=== PATIENT | female | born 1945 | race Caucasian/White ===

== ENCOUNTER 2017-01-28 08:54 | Day surgery (SDC) | payer OTHER ==
--- NOTE | 2017-01-22 15:32 | HISTORY AND PHYSICAL E ---
History and Physical NAME: BERNARDINO ROWE : 1945 AGE: 71Y ADMITTED: 01/28/2017 ROOM: CHIEF COMPLAINT: Colon screening. HISTORY: Know to me 2009 colonoscopy showing diverticulosis, no evidence of malignancy. At this time, patient for colon screening. REVIEW OF SYSTEMS: CARDIAC: Negative. PULMONARY: Negative. MEDICATIONS: 1. Lipitor. 2. Lisinopril. 3. Losartan. 4. Omeprazole. 5. Cymbalta. 6. Lactulose. 7. Metamucil. 8. MiraLax. PAST MEDICAL HISTORY: 1. Constipation. 2. Arthritis. 3. Hypertension. 4. Diverticulosis. PHYSICAL EXAMINATION: GENERAL: Alert and oriented, in no acute distress. VITAL SIGNS: Blood pressure 130/70, pulse 80, respirations 20, temp 98. HEAD, EYES, EARS, NOSE AND THROAT: Normal. ABDOMEN: Soft. NEUROLOGICAL: Exam negative. CONCLUSIONS: Diverticulosis. PLAN: To undergo colon screening. The patient did have CAT scan, mild diverticulosis sigmoid colon. She did have left anterior pelvic hernia interposed between the lateral margin of the left rectus abdominis muscle and the left iliac crest. PAST SURGICAL HISTORY: 1. Appendectomy. 2. Hysterectomy. 3. Right side predominant bladder surgery. 4. Mild rotatory dextrocurvature of the upper lumbar spine. Diffuse osteopenia. CONCLUSIONS: Colon screening. The patient presents at this time for colon screening. Admit 01/28/2017. DICTATING PHYSICIAN: KRIS GILBERT M.D. [id number] Y#: [id number] ID: [id number] JOB#: [id number] ACCT: [id number] cc:KRIS GILBERT M.D. >
[~2017-01-28 08:54] MED LIST: EPINEPHRINE INJ 1 MG/10 ML DISP.SYRIN ONE; FENTANYL CITRATE INJ/PF 100 MCG/2 ML AMPUL ONE; FLUMAZENIL INJ 0.5 MG/5 ML VIAL IV ONE; GLUCAGON,HUMAN RECOMB 1 MG INJ ONE; GLYCOPYRROLATE INJ 0.4 MG/2 ML VIAL ONE; LIDOCAINE 2% JELLY 30 ML TUBE ONE; NALOXONE HCL INJ/PF 0.4 MG/1 ML SDV ONE; ONDANSETRON HCL INJ/PF 4 MG/2 ML SDV ONE
[2017-01-28] MEDS: MIDAZOLAM 2 MG/2 ML INJ ONE ×3 (09:21→09:30)
--- NOTE | 2017-01-28 10:12 | DISCHARGE SUMMARY E ---
Discharge Summary NAME: BERNARDINO ROWE : 1945 AGE: 71Y ADMITTED: 01/28/2017 DISCHARGED: HISTORY: The patient is a 71 years old female who underwent colon screening today that shows mild external hemorrhoids, sigmoid descending colon, and diverticulosis. DISCHARGE PLAN: Soft diet. Resume all medication except hold aspirin 2 days. Awaiting biopsy results. Consideration for colonoscopy every 10 years. Patient does have a history of hysterectomy, bilateral knees, irregular heart beat, hypertension. DICTATING PHYSICIAN: KRIS GILBERT M.D. [id number] PHY#: [id number] ID: [id number] JOB#: [id number] ACCT: [id number] cc:KRIS GILBERT M.D. >
[2017-01-28 10:50] VITALS: BP 135/65
--- NOTE | 2017-01-29 10:28 | OPERATIVE REPORT E ---
Operative Report NAME: BERNARDINO ROWE : 1945 AGE: 71Y DATE OF SURGERY: 01/28/2017 ROOM: PREOPERATIVE DIAGNOSIS: Colon screening. POSTOPERATIVE DIAGNOSES: 1. Sigmoid and descending colon diverticulosis, mild. 2. External hemorrhoids, mild. PROCEDURE: Colonoscopy. SURGEON: KRIS GILBERT M.D. ANESTHESIA: 1. Versed 2 mg. 2. Fentanyl 100 mcg. TISSUE REMOVED OR ALTERED: None. DESCRIPTION OF PROCEDURE: RECTAL EXAM: External hemorrhoids. SIGMOID AND DESCENDING COLON: Diverticulosis. TRANSVERSE COLON: Normal. ASCENDING COLON: Normal. CECUM: Normal. Scope withdrawn from cecum, ascending, transverse, descending, sigmoid, all the way to the rectum. CONCLUSION: 1. External hemorrhoids. 2. Diverticulosis of sigmoid and descending colon. PLAN: 1. Soft diet for 2 days. 2. Consider followup colonoscopy in 10 years. DICTATING PHYSICIAN: KRIS GILBERT M.D. [id number] PHY#: [id number] ID: [id number] JOB#: [id number] ACCT: [id number] cc:Alyssa PYLE M.D. >
== END 2017-01-28 10:55 | disposition home or self-care (01) ==
LOC: END 08:54
PROVIDERS: ATTEND Specialist
PROC: 0DJD8ZZ Inspection of Lower Intestinal Tract, Via Natural or Artificial Opening Endoscopic (ICD-10-PCS; principal; 2017-01-28 09:00)
DX: Z12.11 Encounter for screening for malignant neoplasm of colon (principal); K64.4 Residual hemorrhoidal skin tags; K57.30 Diverticulosis of large intestine without perforation or abscess without bleeding; M19.90 Unspecified osteoarthritis, unspecified site; I10 Essential (primary) hypertension; Z79.899 Other long term (current) drug therapy
CPT/HCPCS: G0121; J2250; J3010; J1610; 45378; J0171; J2310; J2405; J3490

== ENCOUNTER → 2020-04-21 | Outpatient (CLI) | payer OTHER ==
--- NOTE | 2020-04-21 16:06 | RADIOLOGY REPORT (SQ) ---
EXAM DESCRIPTION: BARIUM SWALLOW ESOPHAGUS IMAGES COMPLETED DATE/TIME: 04/21/2020 10:35 am REASON FOR STUDY: DYSPHAGIA (R13.10) R13.10 DYSPHAGIA, UNSPECIFIED COMPARISON: None. TECHNIQUE: Under fluoroscopic guidance, patient ingested effervescent granules followed by thick and thin barium. Fluoroscopic spot images and routine radiographic images acquired and stored on PACS. 12 MM BARIUM TABLET GIVEN: Tablet passed through the esophagus and into the stomach without delay. LIMITATIONS: None. FLUOROSCOPY TIME: FLUORO TIME: 2.2 minutes 7 images saved to PACS. FINDINGS: NEUROMUSCULAR COORDINATION OF SWALLOW: Normal. No aspiration. ESOPHAGEAL MOTILITY: Normal peristalsis. No esophageal spasm. ESOPHAGEAL MUCOSA: Normal mucosa without masses or ulceration. GASTRO-ESOPHAGEAL JUNCTION: Small hiatal hernia with mild Schatzki's ring. Marked gastroesophageal r eflux to the level of the clavicles. NON-GI TRACT STRUCTURES: No significant finding. OTHER: No other significant finding. IMPRESSION: SMALL HIATAL HERNIA WITH MILD SCHATZKI'S RING. MARKED GASTROESOPHAGEAL REFLUX. OTHERWI SE UNREMARKABLE STUDY. RECOMMENDATION: NONE COMMENT: None Quality ID [id number]: Final reports for procedures using fluoroscopy that document radiation exposure dirk marcela, or exposure time and number of fluorographic images (if radiation exposure indices are not avail able) TECHNICAL DOCUMENTATION: JOB ID: [id number] 2010 Event [employer]- All Rights Reserved Reading location - IP/workstation name: [email or web address]
== END ==
LOC: RAD 09:09
PROVIDERS: ATTEND Family Medicine
DX: K44.9 Diaphragmatic hernia without obstruction or gangrene (principal); K21.9 Gastro-esophageal reflux disease without esophagitis; R13.10 Dysphagia, unspecified
CPT/HCPCS: 74220